=== PATIENT | male | born 1975 | race Hispanic/Latino ===

== ENCOUNTER 2017-05-10 06:12 | Emergency (ER) | payer MEDICAID ==
[2017-05-10 06:28] VITALS: BP 150/75; PULSE 86; RESP 17; TEMP 98.4; O2SAT 98
[2017-05-10] MEDS ORDERED: Naproxen 500 MG TAB PO STA (06:35)
[2017-05-10] MEDS ORDERED: Naproxen 500 MG TAB PO ONE (06:39)
--- NOTE | 2017-05-10 06:59 | ED PDOC ---
Lower Extremity Pain/Injury Time Seen by Provider: 05/10/17 06:24 Chief Complaint (Nursing): Lower Extremity Problem/Injury Chief Complaint (Provider): Lower extremity injury History/Exam Limitations: no limitations Onset/Duration Of Symptoms: Days (x2) Current Symptoms Are (Timing): Still Present Additional Complaint(s): Sagar Sidhu is a 42 year old male, with a past medical history of asthma, who presents to the emergency department complaining of left knee pain onset 2 days ago. 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 He states he landed hard on his left knee and twisted it and is now with pain. Patient reports pain is worst when bearing weight and ambulation. He took an unspecified muscle relaxer with no relief but has been able to walk. No further medical complaints. PMD: Sagar Gamino - Knee Description Of Injury: Twisted (jumped of truck and landed hard on left knee) Currently Unable To: Bear Weight, Other (ambulation) Past Medical History Reviewed: Historical Data, Nursing Documentation, Vital Signs Vital Signs: Last Vital Signs Temp 98.4 F 05/10/17 06:20 Pulse 86 05/10/17 06:20 Resp 17 05/10/17 06:20 BP 150/75 05/10/17 06:20 Pulse Ox 98 05/10/17 06:20 - Medical History PMH: Asthma - Surgical History Surgical History: Appendectomy, Hernia Repair - Family History Family History: States: No Known Family Hx - Social History Current smoker - smoking cessation education provided: No Alcohol: None Drugs: Denies - Home Medications Home Medications: Ambulatory Orders Medication Instructions Recorded Ibuprofen [Motrin Tab] 1 tab PO PRN PRN 05/10/17 Naproxen [Naprosyn] 500 mg PO Q12 #14 tab 05/10/17 - Allergies Allergies/Adverse Reactions: Allergies Allergy/AdvReac Type Severity Reaction Status Date / Time No Known Allergies Allergy Verified 09/06/15 13:56 Review of Systems ROS Statement: Except As Marked, All Systems Reviewed And Found Negative Musculoskeletal: Positive for: Leg Pain (left knee pain) Physical Exam - Reviewed Nursing Documentation Reviewed: Yes Vital Signs Reviewed: Yes - Physical Exam Appears: Positive for: Well, Non-toxic, No Acute Distress Head Exam: Positive for: ATRAUMATIC, NORMAL INSPECTION, NORMOCEPHALIC Skin: Positive for: Normal Color, Warm, Dry Eye Exam: Positive for: Normal appearance Neck: Positive for: Normal, Painless ROM, Supple Respiratory: Negative for: Respiratory Distress Extremity: Positive for: Tenderness (Point tenderness to the infrapatellar surface of knee.). Negative for: Deformity (or ecchymosis to left knee), Swelling (to left knee) Neurologic/Psych: Positive for: Alert, Oriented - ECG O2 Sat by Pulse Oximetry: 98 (RA) Pulse Ox Interpretation: Normal Medical Decision Making Medical Decision Making: Initial Impression: 42 y/o male with acute left knee pain s/p injury Initial Plan: --Knee 3 views LT [RAD] --Naproxen 500mg PO --Ultram 50 mg PO --reevaluation Scribe Attestation: Documented by Saulo Faust, acting as a scribe for Gregg Beckwith MD. Provider Scribe Attestation: All medical record entries made by the Scribe were at my direction and personally dictated by me. I have reviewed the chart and agree that the record accurately reflects my personal performance of the history, physical exam, medical decision making, and the department course for this patient. I have also personally directed, reviewed, and agree with the discharge instructions and disposition. Disposition - Clinical Impression Clinical Impression: Knee strain - Patient ED Disposition Is Patient to be Admitted: Transfer of Care - Disposition Disposition Time: 07:00 Condition: STABLE Additional Instructions: Please follow up with your employee health service in 2-3 days Prescriptions: Naproxen [Naprosyn] 500 mg PO Q12 #14 tab Instructions: Knee Pain (ED), Knee Immobilizer (ED) Forms: [employer] ([place]ic), [facility] ED School/Work Excuse Patient Signed Over To: Rufino Bajwa
--- NOTE | 2017-05-10 07:12 | ED PDOC ---
- ECG O2 Sat by Pulse Oximetry: 98 (RA) Pulse Ox Interpretation: Normal Medical Decision Making Medical Decision Making: Time: 0700 --Patient endorsed from Dr. Beckwith to me. --Rule out fracture, pending x-ray Scribe Attestation: Documented by Beatriz Rodriguez, acting as a scribe for Rufino Bajwa MD. Provider Scribe Attestation: All medical record entries made by the Scribe were at my direction and personally dictated by me. I have reviewed the chart and agree that the record accurately reflects my personal performance of the history, physical exam, medical decision making, and the department course for this patient. I have also personally directed, reviewed, and agree with the discharge instructions and disposition. Disposition - Clinical Impression Clinical Impression: Knee strain - Disposition Condition: STABLE Additional Instructions: Please follow up with your employee health service in 2-3 days Prescriptions: Naproxen [Naprosyn] 500 mg PO Q12 #14 tab Instructions: Knee Pain (ED), Knee Immobilizer (ED) Forms: [employer] ([place]ese)
--- NOTE | 2017-05-10 08:52 | RAD ---
PROCEDURE: Left Knee Radiographs. HISTORY: Pain. COMPARISON: None. FINDINGS: BONES: Normal. No fracture. Two views were obtained. JOINTS: Minor degenerative changes are seen. JOINT EFFUSION: Small joint effusion is not excluded. Minimal patellofemoral changes are noted. OTHER FINDINGS: None. IMPRESSION: No fracture.
== END 2017-05-10 07:28 | disposition home or self-care (01) ==
LOC: H.ER 06:12
DX: S86.912A Strain of unspecified muscle(s) and tendon(s) at lower leg level, left leg, initial encounter (principal); X50.1XXA Overexertion from prolonged static or awkward postures, initial encounter; Y93.39 Activity, other involving climbing, rappelling and jumping off; Y99.0 Civilian activity done for income or pay